=== PATIENT | female | born 1940 | race Caucasian/White ===

== ENCOUNTER 2025-06-05 17:08 | Inpatient (IN) ==
[2025-06-05 17:43] LABS: Hematocrit (blood only) 39.7 % (37.0-47.0); Hemoglobin 13.1 g/dL (12.0-16.0); Immature Granulocytes # (auto) 0.03 K/uL (0.01-0.20); Immature Granulocytes % (auto) 0.4 %; Mean Corpuscular Hemoglobin 31.6 pg (25.0-34.0); Mean Corpuscular Volume 95.7 fL (80.0-100.0); Platelet Count 141 K/uL (130-400); RDW Standard Deviation 48.1 fL (36.4-46.3); Red Blood Count 4.15 M/uL (4.20-5.40); White Blood Count 8.25 K/ul (4.8-10.8)
[2025-06-05] MEDS: TICAGRELOR 90 MG TAB PO ONE (17:50)
[2025-06-05] MEDS: niCARdipine 2,000 MCG/20 ML SYR ONE (17:50)
[2025-06-05] MEDS: NITROGLYCERIN/D5W 100MCG/ML 20ML SYR ONE (17:50)
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
[2025-06-05 18:04] LABS: Alanine Aminotransferase 44.0 U/L (7-52); Albumin Globulin Ratio 1.3 (0.9-2); Albumin Level 3.7 gm/dl (3.4-5.0); Alkaline Phosphatase 57.0 U/L (34-104); Anion Gap 9.0 (3-11); Bilirubin,Total 0.4 mg/dl (0.2-1.0); Blood Urea Nitrogen 45.0 mg/dl (6-23); Calcium 9.0 mg/dl (8.6-10.3); Carbon Dioxide 24.0 mmol/L (21-32); Chloride 102.0 mmol/L (98-107); Creatine Kinase 95.0 U/L (26-192); Creatinine Clr Calc Pharmacy 41.2 ml/min; Globulin 2.8 gm/dl (2.5-4.0); Glucose 122.0 mg/dl (70-99(Fasting)); Lipase 95.0 U/L (11-82); Magnesium 2.1 mg/dl (1.7-2.4); Potassium 4.8 mmol/L (3.5-5.1); Sodium 135.0 mmol/L (136-145); Total Protein 6.5 gm/dl (6.0-8.3)
[2025-06-05] MEDS: OPTIRAY 350 ONE (18:14)
[2025-06-05] MEDS: HEPARIN (PORCINE) 1000 UNIT/ML 10 ML (CATH LAB USE ONLY) ONE (18:15)
[2025-06-05] MEDS: MIDAZOLAM HCL 1 MG/ML 2ML VIAL ONE (18:16)
[2025-06-05 18:19] LABS: Thyroid Stimulating Hormone 1.865 uIu/ml (0.300-4.500)
--- NOTE | 2025-06-05 18:23 | Pre Anesthesia Assessment ---
Date of Service June 05, 2025 Pre Sedation Assessment Vital Signs Temp Pulse Pulse Resp BP BP Pulse Ox 06/05/25 17:13 92 06/05/25 17:13 06/05/25 16:56 92 06/05/25 16:56 36.8 C 82 20 124/91 92 06/05/25 16:56 06/05/25 16:56 36.8 C 82 20 124/91 92 O2 Del Method 06/05/25 17:13 Room Air 06/05/25 17:13 Room Air 06/05/25 16:56 Room Air 06/05/25 16:56 Room Air 06/05/25 16:56 Room Air 06/05/25 16:56 Room Air Cardiovascular RRR, no murmur, no edema Respiratory normal respiratory effort, lungs clear to auscultation Pre-Sedation Airway Assessment Smoking Status: Never smoker mallampati 2 ASA 4 Notes The planned sedation has been discussed with the patient. Informed Consent was obtained. I have identified the patient, determined the appropriateness of sedation and have assessed the patient immediately prior to the procedure. All medicine(s) and interventions are by my order.
[2025-06-05 18:24] LABS: INR 1.1 (0.9-1.1); Prothrombin Time 11.5 Seconds (9.0-12.0)
[2025-06-05] MEDS ORDERED: SODIUM CHLORIDE 0.9% 250 ML IV PRN (18:24)
--- NOTE | 2025-06-05 18:24 | Post Anesthesia Assessment ---
Date of Service June 05, 2025 Post Sedation Assessment Vital Signs Temp Pulse Pulse Resp BP BP Pulse Ox 06/05/25 17:13 92 06/05/25 17:13 06/05/25 16:56 92 06/05/25 16:56 36.8 C 82 20 124/91 92 06/05/25 16:56 06/05/25 16:56 36.8 C 82 20 124/91 92 O2 Del Method 06/05/25 17:13 Room Air 06/05/25 17:13 Room Air 06/05/25 16:56 Room Air 06/05/25 16:56 Room Air 06/05/25 16:56 Room Air 06/05/25 16:56 Room Air Recovery Score Activity: Moves 4 extremities Respiration: Deep Breath/Cough Circulation: +/-20% PreAnes Value Consciousness: Fully Awake Oxygen Saturation: > 92% On Room Air Discharge Sedation Level of Care: Fast Track Phase II Post Sedation Plan On clinical assessment, the patient appears to have tolerated the sedation without complications. Patient is recovering as anticipated. Patient will continue to be monitored by nursing and may be discharged when sedation discharge criteria are met per below protocol. Upon Completions of procedure up to 15 minutes continue every 5 minute vital signs and the P.A.R. score; then discharge to a Phase I or Fast Track to Phase II per the following guidelines: * Discharge Patient to appropriate Phase II area if PAR is 8 or greater or return to pre- procedure baseline. The post - procedure orders will be as directed. * If PAR score is less than 8 or not return to pre-procedure baseline then patient will follow Phase I monitoring till PAR is reached for Phase II. The Phase I may be done in procedure room or may call to secure a Phase I area. * If naloxone or flumazenil are used for reversal, hold in Phase I for continued monitoring from when last reversal dose was given for a minimum of 60 minutes or longer pending the nurse and/or physician discretion of patient condition before discharge to Phase II. Please call the Sedation Physician to re-evaluate and complete post-note for discharge to Phase II area. Do NOT discharge from procedure sedation or Phase 1 until post- sedation evaluation note is complete by procedure /sedation MD Sedation Discharge Instructions to be given to the patient at discharge to home. [facility] Procedure Codes (Charges) Indication for Procedure Indication for procedure: ACS
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
[2025-06-05 18:51] LABS: Partial Thromboplastin Time 103 Seconds (21-31)
--- NOTE | 2025-06-05 18:58 | Cardiac Catheterization ---
[facility] Data: Surveillance Technician Cardiac Status Clinical evaluation leading to the procedure CAD Presenation: STEMI Anginal Classification: CCS IV Cardiogenic Shock within 24 Hours: No Cardiac Arrest within 24 Hours: No Imaging Studies Past 6 Months: No Stress Studies Past 6 Months: No STEMI OR Non-STEMI Symptom Onset Date: 06/05/25 Coronary Anatomy Dominant: Right Left Main (% Stenosis): Normal (Diffuse up to 20-30%) LAD (% Stenosis): Proximal (60-70%, calcified), Mid (80%, 100% heavily calcified) and Distal (Not visualized) D1 (% Stenosis): Proximal (70-80%) D2 (% Stenosis): Normal (Small caliber) Circumflex (% Stenosis): Proximal (Proximal to mid long eccentric 70%) L PL1 (% Stenosis): Ostial (80%) RCA (% Stenosis): Normal R PDA (% Stenosis): Normal R PL1 (% Stenosis): Normal Ramus (% Stenosis): Ostial (80%) and Normal (Diffuse mild) Diagnostic Physicians Name: Alirio Garcia MD, PhD Closure Device Percutaneous Entry Location: Radial Closure Device: Radial Band Recommendations: Medical Therapy and/or Counseling Cardiac Cath Procedure Full Procedure Date June 05, 2025 Pre-Procedure Diagnosis Pre-Procedure Diagnosis: STEMI AUC Score AUC Score: 09 Post-Procedure Diagnosis Post-Procedure Diagnosis: Severe CAD Procedure(s) Performed Procedure(s) Performed: Coronary Angiography Bead Cutter Alirio Garcia MD, PhD Estimated Blood Loss Estimated Blood Loss: Less than 5 cc Medication(s) Medication(s): Fentanyl, Heparin, Lidocaine 1%, Nicardipine, Nitroglycerin and Versed Summary of Findings Brief description: Patient was brought to the cardiac catheterization suite where she was shaved and prepped in a sterile fashion. Sedated using IV Versed and fentanyl. Soft tissues of the right wrist were anesthetized using 3 mL of 1% Xylocaine. The right radial artery was accessed with a modified Seldinger technique and a 6 Montenegrin radial artery glide sheath was placed. Patient was provided anticoagulation with IV heparin and antispasmodics including nicardipine and nitroglycerin. All catheters were advanced and exchanged over a 0.035 J-tip wire. Right coronary angiography in orthogonal views with a 5 Montenegrin JR4 and JR 5 diagnostic catheter. Left coronary angiography with a 6 Montenegrin EBU 3.0 guide catheter. Because of the angiographic findings in the LAD decision was made to probe the lesion with the coronary guidewire. A BMW universal guidewire was advanced through the guide catheter and we attempted to cross the occlusion. This was not successful. After reshaping and multiple attempts we abandon use of the BMW universal guidewire. We next attempted to cross the lesion with a run-through coronary guide catheter. Again, we were unable to cross the 100% occlusion. The wire was able to go into the septal as well as the second diagonal branch but could not pass the lesion in the LAD. It was clear that this was a chronic total occlusion and decision was made to abandon further attempts at PCI. Additionally, patient had no chest pain on arrival to the Surveillance Technician. Final angiographic evaluation was performed once daily guidewire was removed. Guide catheter was then removed over the J-wire. We completed the right coronary angiography to better identify collateralization using the JR 5 diagnostic catheter. That catheter was then removed as well. Radial artery sheath was removed. Hemostasis was obtained using the TR band. Patient reported no chest pain and was hemodynamically stable. She was therefore transported to the ICU for further workup and management. This ended the case. Coronary angiography findings: RCA-medium to large caliber dominant vessel. Bifurcates distally into the PDA and posterolateral branches. No angiographically evident disease. Provides sparse cgshv-vw-[id number] collateralization. LMT-this is large caliber and trifurcates into the LAD, ramus, and circumflex. It has diffuse mild disease with the most significant stenosis being 20 to 30%. LAD-medium to large in caliber. Diffuse and heavy calcification proximal and mid vessel. Proximal LAD has 60 to 70% stenosis. LAD provides a medium caliber septal branch which has ostial 90% stenosis and a medium caliber first diagonal which branches distally and has a proximal 70 to 80% stenosis. The mid LAD has calcified 80% stenosis and after it bends it is then 100% occluded. This is a flat/flush occlusion and occurs at the level of a small second diagonal and a septal branch. MERRICK 0 flow distally. Ramus-small caliber and long vessel. Ostial disease of 80 to 90%. The rest of the vessel has diffuse mild disease. ZTx-tqvaq-bpjlnzs and nondominant. Travels in the AV groove where there is a long eccentric 70% stenosis. Distally provides a large branching posterolateral. This vessel has ostial 80% stenosis and then mild luminal irregularities. Summary: 1. Patient has severe multivessel coronary disease involving the circumflex and LAD. However, none of these lesions appear to be a acute culprit lesion and the attempts to pass the LAD stenosis as well as the angiographic appearance of the lesion are highly suggestive that this is a chronic total occlusion. 2. Recommend medical management for secondary prevention of coronary disease to include low-dose aspirin, high intensity statin therapy, beta-yue, and continue CHI inhibitor. Hemodynamics Rest Ao:: 110/67 mmHg Final Ao: 101/75 mmHg LV: Not performed Recommendations Recommendations: Medical Therapy and/or Counseling Radiation Exposure (mGy) 817 mGy, fluoroscopy time 15.4 minutes Contrast (mls) 290 cc Anesthesia 1 mg Versed, 25 mcg fentanyl IV. Start time 1738, end time 1816 Procedural Complication(s) None Disposition ICU I attest to the content of the Intraoperative Record and any orders documented therein. Any exceptions are noted below. [facility] Card Cath Procedure Codes Cardiac Catheterization Procedure 1: Cardiovascular Cath Procedures: 06980 Coronaries Moderate Sedation Procedure 1: Sedation/Anesthesia: 26174 Mod Sedation by the same physician;Init15 Min Child Age 5 & Up (Initial 15 minutes, start time 1738) Procedure 2: Sedation/Anesthesia: 81401 Mod Sedation by the same physician; Ea [id number] Minutes (Additional 23 minutes, end time 1816) PG Care Time/CCT Total # of Minutes Spent Total Time Spent with Patient: Total time spent is greater than 50% in coordination of care (as documented) at patient's floor/unit and/or counseling patient:
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
[2025-06-05] MEDS ORDERED: POLYETHYLENE (MIRALAX) 17 GM PACK PO PRN (19:36)
[2025-06-05] MEDS: ACETAMINOPHEN 325 MG TAB PO PRN (19:40)
[2025-06-05] MEDS ORDERED: ARTIFICIAL TEARS OP PRN (19:50)
[2025-06-05] MEDS ORDERED: ALBUTEROL 0.083% NEBU SOLN 3 ML VIAL INH PRN (19:52)
[2025-06-05] MEDS: NITROGLYCERIN SL 0.4 MG/TAB TAB SL PRN (20:00)
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
--- NOTE | 2025-06-05 20:16 | Communication Note ---
Date of Service: June 05, 2025 Patient with chest pressure/tightness that she reports is on left side of chest radiating to jaw, reports that this is the same that she experienced earlier today for which she sought medical attention. - Will provide SL NTG- - If her symptoms persist will place on NTG infusion - give her BB and CHI/ARB with goal to get SBP around 120- currently 140- 150/90s - oxygen to keep SPO2 >95% - heparin infusion pending labs - consider morphine if pain persists through NTG Discussed with interventional cardiology Dr. Fisher and recommends treating symptomatically and without urgent need for revascularization based on cath findings. Steve CAVAZOS ([facility]
[2025-06-05] MEDS: HEPARIN 25000 UNIT/500 ML D5W 25,000 UNITS/500 ML BAG IV SCH (20:22)
[2025-06-05] MEDS: Heparin IV Adult Wt-Based Low-Dose *NO* INITIAL Bolus Protocol IV STA (20:27)
[2025-06-05] MEDS: ONDANSETRON INJ 2 MG/ML 2 ML VIAL IV PRN (20:40)
[2025-06-05 20:44] LABS: INR 1.0 (0.9-1.1); Partial Thromboplastin Time 35 Seconds (21-31); Prothrombin Time 11.0 Seconds (9.0-12.0)
--- NOTE | 2025-06-05 20:47 | XRay Report ---
Exam(s): XR CXR 1 VIEW EXAM: XR Chest, 1 View CLINICAL HISTORY: Reason for exam: Chest pain, nonspecific. TECHNIQUE: Frontal view of the chest. COMPARISON: Chest radiograph on 12/16/2011 FINDINGS: Hardware: None. Lungs/pleura: Interstitial opacities throughout the lungs. No pleural effusion or pneumothorax. Heart/mediastinum: Normal. No cardiomegaly. Soft tissues: Unremarkable. Bones: No acute fracture. Screw through the left clavicle. Upper abdomen: Normal. IMPRESSION: Interstitial opacities throughout the lungs may represent pulmonary vasculature congestion or infectious/inflammatory process. Electronically signed by: Helen Parada M.D. 06/05/25 20:45 PM
[2025-06-05] MEDS: UREA (UREA-NA) 15 GM PACK PO SCH (21:14)
[2025-06-05] MEDS ORDERED: STAT IV Infusion **Titration per Protocol STA (21:22)
[2025-06-05] MEDS: NITROGLYCERIN/D5W 100MCG/ML 250 ML IV SCH (21:26)
[2025-06-05] MEDS: NITROGLYCERIN/D5W 100 MCG/ML BTL ONE (22:32)
[2025-06-05] MEDS: GABAPENTIN 100 MG CAP PO SCH (22:34)
[2025-06-05] MEDS: ROSUVASTATIN CALCIUM 20 MG TAB PO SCH (22:34)
[2025-06-05] MEDS: MIRTAZAPINE TAB 15 MG TAB PO SCH (22:34)
[2025-06-05] MEDS: MONTELUKAST SODIUM 10 MG TABLET PO SCH (22:34)
[2025-06-05] MEDS: MoRPHine SULFATE 2 MG/ML CARP IV STA (22:54)
[2025-06-05] MEDS: PANTOprazole 40 MG/10 ML SYR IV ONE (22:58)
[2025-06-05 23:38] VITALS: TEMP 98.2
[2025-06-06 03:11] LABS: Hematocrit (blood only) 35.1 % (37.0-47.0); Hemoglobin 11.8 g/dL (12.0-16.0); Mean Corpuscular Hemoglobin 32.0 pg (25.0-34.0); Mean Corpuscular Volume 95.1 fL (80.0-100.0); Platelet Count 147 K/uL (130-400); RDW Standard Deviation 48.4 fL (36.4-46.3); Red Blood Count 3.69 M/uL (4.20-5.40); White Blood Count 8.33 K/ul (4.8-10.8)
[2025-06-06] MEDS: MoRPHine SULFATE 2 MG/ML CARP IV STA ×2 (03:51→08:58)
[2025-06-06 03:58] LABS: ANTI-Xa, UFH(UnfractionatedHep 0.67 IU/ml (0.3-0.7)
[2025-06-06 04:11] LABS: Albumin Level 3.7 gm/dl (3.4-5.0); Anion Gap 10.0 (3-11); Bilirubin,Total 0.5 mg/dl (0.2-1.0); Calcium 8.5 mg/dl (8.6-10.3); Carbon Dioxide 20.0 mmol/L (21-32); Chloride 103.0 mmol/L (98-107); Magnesium 2.2 mg/dl (1.7-2.4); Potassium 4.6 mmol/L (3.5-5.1); Sodium 133.0 mmol/L (136-145)
[2025-06-06 04:18] LABS: Alanine Aminotransferase 50.0 U/L (7-52); Albumin Globulin Ratio 1.7 (0.9-2); Alkaline Phosphatase 49.0 U/L (34-104); Blood Urea Nitrogen 38.0 mg/dl (6-23); Cholesterol 136.0 mg/dl (0-200); Creatinine Clr Calc Pharmacy 48.8 ml/min; Globulin 2.2 gm/dl (2.5-4.0); Glucose 129.0 mg/dl (70-99(Fasting)); HDL Cholesterol 55.0 mg/dl; Total Protein 5.9 gm/dl (6.0-8.3); Triglycerides 56.0 mg/dl (0-150)
[2025-06-06 08:03] LABS: Hemoglobin A1C 5.9 % (4.5-5.6)
[2025-06-06] MEDS: MoRPHine SULFATE 2 MG/ML CARP ONE (08:30)
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
--- NOTE | 2025-06-06 09:25 | Critical Care Progress Note ---
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 To the ICU for continued symptomatology and hemodynamic monitoring. Neuro - NO acute needs CAM ICU: NEGATIVE Cardiac - chest pain, CAD, ACS Hx: HTN, HLD - Multivessel disease. Patient with persistent chest pain despite nitroglycerin and morphine. Dr. Ochoa discussing with [facility] regarding potential transfer for additional intervention. EF about 20% per Dr. Ochoa. Continuing heparin infusion. Continue to trend troponins. Continue aspirin, CHI inhibitor, beta-yue and statin. Respiratory - No acute need- hx of Asthma - Continue ICS/LABA inhaler. Chest x-ray with mild interstitial opacities possibly from vascular congestion. Low threshold for CT chest with contrast. GI - No acute need - N.p.o. for the time being for RENAL/LYTES - No acute needs- chronic hyponatremia - follow daily labs - No acute needs ENDO - No acute needs - ICU hyper/hypoglycemic protocol- HEME - No acute need - Heparin as above ID - no concern at this time for infective etiology LINES/IV ACCESS - PIV Continue use of these lines DVT PROPHYLAXIS - DISPO-patient with ongoing ischemic symptoms. Monitor in ICU and possible transfer to tertiary center depending on cardiology input. I have personally spent 42 minutes of critical care time in the direct management of this patient. This is a life/limb threatening event. This includes time spent evaluating patient, direct bedside care, chart review, placing orders, interpretation of diagnostic studies, discussion with consultants, patient, and family members, as well as other required patient management activities. This time is exclusive of all separately billable procedures, and teaching time and separate from and in addition to any other critical care service time. Thank you for allowing us to participate in the care of this patient. Please refer to my attending physician's documentation for any further recommendations. Admission and Anticipated Discharge Date Admission Date: June 05, 2025 Subjective Patient complaining of 8 out of 10 chest pain today that appears to be squeezing in nature and radiating to left arm. Cardiology at bedside (Dr. Ochoa). Patient denies any significant dyspnea and nausea. Hemodynamically she is stable. She underwent a left heart catheterization last night and was found to have severe chronic disease. Review of Systems Review of Systems: All systems reviewed & are unremarkable except as noted in HPI & below Physical Exam Physical Exam: PHYSICAL EXAM: General: awake, alert, no apparent distress Head: Normocephalic, atraumatic ENT: PERRLA, EOMI, no pharyngeal exudate, mucous membranes moist Neuro: AAO x 3, speech clear and appropriate, strength intact bilaterally 5/5, sensation intact and equal all extremities bilaterally upper and lowers, no pron ator drift Chest: equal rise and fall of the chest, no accessory muscle use, no heaves or thrills, Clear to auscultation, on room air, Cardiac: Regular rate and rhythm, telemetry reviewed- NSR no ectopy, skin warm dry, cap refill <3 seconds, peripheral pulses +2 no JVD, grade I systolic murmur Rsternal border GI: NABS x 4 quadrants, soft, nontender to palpation, no rebound, guarding or tenderness : Spontaneously voiding, no pain, no CVA tenderness, Skin: no rash or erythema Results & Data Results & Data Vital Signs (Past 12 Hours) Vital Signs Temp Pulse Resp BP Pulse Ox O2 Del Method O2 Flow Rate 06/06/25 08:42 66 15 98 06/06/25 08:40 116/61 06/06/25 08:39 66 13 97 06/06/25 08:30 69 17 99 06/06/25 08:30 110/61 06/06/25 08:21 64 15 99 06/06/25 08:20 118/65 06/06/25 08:18 65 16 99 06/06/25 08:12 67 15 99 06/06/25 08:10 125/68 06/06/25 08:09 69 17 99 06/06/25 08:00 125/65 06/06/25 08:00 72 17 100 06/06/25 07:51 65 17 100 06/06/25 07:45 67 14 100 06/06/25 07:45 127/58 L 06/06/25 07:42 65 13 100 06/06/25 07:38 122/54 L 06/06/25 07:36 81 16 100 06/06/25 07:30 68 16 100 06/06/25 07:30 140/57 L 06/06/25 06:30 77 16 06/06/25 06:30 139/63 06/06/25 06:21 73 15 06/06/25 06:12 71 16 100 06/06/25 06:00 73 23 100 06/06/25 06:00 126/54 L 06/06/25 05:51 67 21 100 06/06/25 05:42 99 06/06/25 05:30 83 15 97 Nasal Cannula 2 06/06/25 05:30 126/68 06/06/25 05:30 126/68 06/06/25 05:21 68 16 98 06/06/25 05:12 65 16 98 06/06/25 05:00 115/63 06/06/25 05:00 115/63 06/06/25 05:00 115/63 06/06/25 05:00 65 15 98 06/06/25 04:51 66 15 98 06/06/25 04:42 66 16 98 06/06/25 04:30 65 14 99 06/06/25 04:30 120/60 06/06/25 04:30 120/60 06/06/25 04:21 70 16 99 06/06/25 04:12 69 17 99 06/06/25 04:00 36.8 C 65 18 98 Nasal Cannula 2 06/06/25 04:00 117/59 L 06/06/25 03:51 73 21 99 06/06/25 03:42 66 17 100 06/06/25 03:30 64 15 100 06/06/25 03:30 120/72 06/06/25 03:30 120/72 06/06/25 03:21 71 15 100 06/06/25 03:12 85 12 98 06/06/25 03:09 120/79 06/06/25 03:09 84 19 100 06/06/25 03:00 73 15 100 06/06/25 02:51 65 31 H 99 06/06/25 02:42 63 23 98 06/06/25 02:30 64 33 H 98 06/06/25 02:30 123/63 06/06/25 02:30 123/63 06/06/25 02:21 63 23 98 06/06/25 02:12 63 16 99 06/06/25 02:00 104/62 06/06/25 02:00 104/62 06/06/25 02:00 63 22 99 06/06/25 01:51 64 16 99 06/06/25 01:42 64 16 99 06/06/25 01:30 111/64 06/06/25 01:30 63 15 99 06/06/25 01:21 64 15 99 06/06/25 01:12 69 15 100 06/06/25 01:00 63 17 100 06/06/25 01:00 105/62 06/06/25 01:00 105/62 06/06/25 00:51 64 15 98 06/06/25 00:42 59 L 21 97 06/06/25 00:30 100/56 L 06/06/25 00:30 100/56 L 06/06/25 00:30 63 19 98 06/06/25 00:21 63 24 98 06/06/25 00:12 62 27 H 97 06/06/25 00:00 61 18 97 06/06/25 00:00 111/65 06/06/25 00:00 65 06/05/25 23:51 62 24 97 06/05/25 23:42 62 21 97 06/05/25 23:30 110/67 06/05/25 23:30 110/67 06/05/25 23:30 36.8 C 110/67 06/05/25 23:30 64 19 97 06/05/25 23:21 66 19 97 06/05/25 23:15 63 13 97 06/05/25 23:15 102/60 06/05/25 23:15 102/60 06/05/25 23:12 72 19 98 06/05/25 23:00 122/60 06/05/25 23:00 122/60 06/05/25 23:00 71 18 97 06/05/25 22:51 78 16 99 06/05/25 22:45 67 28 H 97 06/05/25 22:45 137/73 06/05/25 22:45 137/73 06/05/25 22:42 66 21 97 06/05/25 22:30 72 20 97 06/05/25 22:30 136/73 06/05/25 22:30 136/73 06/05/25 22:30 136/73 06/05/25 22:30 136/73 06/05/25 22:21 66 16 97 06/05/25 22:15 70 15 98 06/05/25 22:15 136/75 06/05/25 22:12 69 16 98 06/05/25 22:00 68 16 99 06/05/25 22:00 143/76 H 06/05/25 21:51 67 16 99 06/05/25 21:45 141/79 H 06/05/25 21:45 141/79 H 06/05/25 21:45 73 15 99 06/05/25 21:42 76 16 99 06/05/25 21:30 64 27 H 100 06/05/25 21:30 142/71 H 06/05/25 21:30 142/71 H Coding Level of Care Code 29829 CRITICAL CARE 1ST 30-74M Diagnoses CAD (coronary artery disease) I25.10 Associated angina: with unspecified form of angina Coronary Disease-Associated Artery/Lesion type: n[place] artery Primary hypertension I10 Hypertension type: primary hypertension Hyperlipidemia, unspecified hyperlipidemia type E78.5 Hyperlipidemia type: unspecified Moderate persistent asthma without complication J45.40 Asthma complication type: uncomplicated Asthma persistence: persistent Asthma severity: moderate Paroxysmal A-fib I48.0 Acute chest pain R07.9 (1) CAD (coronary artery disease) Associated angina: with unspecified form of angina Coronary Disease- Associated Artery/Lesion type: nikols[place] artery (2) Hypertension Hypertension type: primary hypertension Qualified Code(s): I10 - Essential (primary) hypertension (3) Hyperlipidemia Hyperlipidemia type: unspecified Qualified Code(s): E78.5 - Hyperlipidemia, unspecified (4) Asthma Asthma complication type: uncomplicated Asthma persistence: persistent Asthma severity: moderate Qualified Code(s): J45.40 - Moderate persistent asthma, uncomplicated
--- NOTE | 2025-06-06 10:02 | Hospitalist Progress Note ---
Date of Service June 06, 2025 Assessment & Plan (1) STEMI (ST elevation myocardial infarction): (2) CAD (coronary artery disease): (3) Hyperlipidemia: (4) Hypertension: Plan Ms. Yolie New is an 85 year old female with past medical history of hypertension, hyperlipidemia,asthma, breast cancer status post chemoradiation in 2010, endometrial cancer in 2009, paroxysmal AFib, chronic lymphedema of the left leg, SIADH admitted for evaluation of STEMI. LHC Revealed: RCA-medium to large caliber dominant vessel. Bifurcates distally into the PDA and posterolateral branches. No angiographically evident disease. Provides sparse xheft-zq-xuxq collateralization. LMT-this is large caliber and trifurcates into the LAD, ramus, and circumflex. It has diffuse mild disease with the most significant stenosis being 20 to 30%. LAD-medium to large in caliber. Diffuse and heavy calcification proximal and mid vessel. Proximal LAD has 60 to 70% stenosis. LAD provides a medium caliber septal branch which has ostial 90% stenosis and a medium caliber first diagonal which branches distally and has a proximal 70 to 80% stenosis. The mid LAD has calcified 80% stenosis and after it bends it is then 100% occluded. This is a flat/flush occlusion and occurs at the level of a small second diagonal and a septal branch. MERRICK 0 flow distally. Ramus-small caliber and long vessel. Ostial disease of 80 to 90%. The rest of the vessel has diffuse mild disease. OCx-kjues-mkunbzo and nondominant. Travels in the AV groove where there is a long eccentric 70% stenosis. Distally provides a large branching posterolateral. This vessel has ostial 80% stenosis and then mild luminal irregularities. 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 consult for decision of further med mgmt on statin 40mg daily, continue a1c and lipid panel in am #mild transaminitis will repeat in am as well as lipase, no active gi symptoms #SIADH will continue home FR at 1.8L continue urea 3xweek #PAF on coreg for rate, eliquis 2.5mg bid for doac #HTN continue Coreg 3.125 mg twice daily and lisinopril 10 mg twice daily DVT heparin ggt admit to ICU for hemodynamic monitoring s/p [facility] PT/OT Admission and Anticipated Discharge Date Admission Date: June 05, 2025 Physical Exam Physical Exam: GENERAL APPEARANCE: AxOx4, generally well-appearing female, no acute distress. HEENT: NC, AT. MMM. EOMI, clear conjunctiva, oropharynx clear. NECK: Supple without lymphadenopathy. No stiffness or restricted ROM. HEART: Normal rate and regular rhythm, normal S1/S1, no m/r/g LUNGS: CTAB, moving air well. No crackles or wheezes are heard. ABDOMEN: Soft, nontender, nondistended with good bowel sounds heard. BACK: No CVAT, no obvious deformity. EXTREMITIES: Without cyanosis, clubbing. LLE with CHI bandaging for lymphedema; TR band in right wrist NEUROLOGICAL: Grossly nonfocal. Alert and oriented, moving all 4 extremities. CN not formally tested but appear grossly intact. Skin: Warm and dry without any rash. Results & Data Results & Data Vital Signs (Past 12 Hours) Vital Signs Temp Pulse Resp BP Pulse Ox O2 Del Method O2 Flow Rate 06/06/25 08:42 66 15 98 06/06/25 08:40 116/61 06/06/25 08:39 66 13 97 06/06/25 08:30 69 17 99 06/06/25 08:30 110/61 06/06/25 08:21 64 15 99 06/06/25 08:20 118/65 06/06/25 08:18 65 16 99 06/06/25 08:12 67 15 99 06/06/25 08:10 125/68 06/06/25 08:09 69 17 99 06/06/25 08:00 125/65 06/06/25 08:00 72 17 100 06/06/25 07:51 65 17 100 06/06/25 07:45 67 14 100 06/06/25 07:45 127/58 L 06/06/25 07:42 65 13 100 06/06/25 07:38 122/54 L 06/06/25 07:36 81 16 100 06/06/25 07:30 68 16 100 06/06/25 07:30 140/57 L 06/06/25 06:30 77 16 06/06/25 06:30 139/63 06/06/25 06:21 73 15 06/06/25 06:12 71 16 100 06/06/25 06:00 73 23 100 06/06/25 06:00 126/54 L 06/06/25 05:51 67 21 100 06/06/25 05:42 99 06/06/25 05:30 83 15 97 Nasal Cannula 2 06/06/25 05:30 126/68 06/06/25 05:30 126/68 06/06/25 05:21 68 16 98 06/06/25 05:12 65 16 98 06/06/25 05:00 115/63 06/06/25 05:00 115/63 06/06/25 05:00 115/63 06/06/25 05:00 65 15 98 06/06/25 04:51 66 15 98 06/06/25 04:42 66 16 98 06/06/25 04:30 65 14 99 06/06/25 04:30 120/60 06/06/25 04:30 120/60 06/06/25 04:21 70 16 99 06/06/25 04:12 69 17 99 06/06/25 04:00 36.8 C 65 18 98 Nasal Cannula 2 06/06/25 04:00 117/59 L 06/06/25 03:51 73 21 99 06/06/25 03:42 66 17 100 06/06/25 03:30 64 15 100 06/06/25 03:30 120/72 06/06/25 03:30 120/72 06/06/25 03:21 71 15 100 06/06/25 03:12 85 12 98 06/06/25 03:09 120/79 06/06/25 03:09 84 19 100 06/06/25 03:00 73 15 100 06/06/25 02:51 65 31 H 99 06/06/25 02:42 63 23 98 06/06/25 02:30 64 33 H 98 06/06/25 02:30 123/63 06/06/25 02:30 123/63 06/06/25 02:21 63 23 98 06/06/25 02:12 63 16 99 06/06/25 02:00 104/62 06/06/25 02:00 104/62 06/06/25 02:00 63 22 99 06/06/25 01:51 64 16 99 06/06/25 01:42 64 16 99 06/06/25 01:30 111/64 06/06/25 01:30 63 15 99 06/06/25 01:21 64 15 99 06/06/25 01:12 69 15 100 06/06/25 01:00 63 17 100 06/06/25 01:00 105/62 06/06/25 01:00 105/62 06/06/25 00:51 64 15 98 06/06/25 00:42 59 L 21 97 06/06/25 00:30 100/56 L 06/06/25 00:30 100/56 L 06/06/25 00:30 63 19 98 06/06/25 00:21 63 24 98 06/06/25 00:12 62 27 H 97 06/06/25 00:00 61 18 97 06/06/25 00:00 111/65 06/06/25 00:00 65 06/05/25 23:51 62 24 97 06/05/25 23:42 62 21 97 06/05/25 23:30 110/67 06/05/25 23:30 110/67 06/05/25 23:30 36.8 C 110/67 06/05/25 23:30 64 19 97 06/05/25 23:21 66 19 97 06/05/25 23:15 63 13 97 06/05/25 23:15 102/60 06/05/25 23:15 102/60 06/05/25 23:12 72 19 98 06/05/25 23:00 122/60 06/05/25 23:00 122/60 06/05/25 23:00 71 18 97 06/05/25 22:51 78 16 99 06/05/25 22:45 67 28 H 97 06/05/25 22:45 137/73 06/05/25 22:45 137/73 06/05/25 22:42 66 21 97 06/05/25 22:30 72 20 97 06/05/25 22:30 136/73 06/05/25 22:30 136/73 06/05/25 22:30 136/73 06/05/25 22:30 136/73 06/05/25 22:21 66 16 97 06/05/25 22:15 70 15 98 06/05/25 22:15 136/75 06/05/25 22:12 69 16 98 (2) CAD (coronary artery disease) Coronary Disease-Associated Artery/Lesion type: [place] artery Associated angina: with unspecified form of angina (3) Hyperlipidemia Hyperlipidemia type: unspecified Qualified Code(s): E78.5 - Hyperlipidemia, unspecified (4) Hypertension Hypertension type: primary hypertension Qualified Code(s): I10 - Essential (primary) hypertension
[2025-06-06 10:11] VITALS: RESP 16; O2SAT 94
--- NOTE | 2025-06-06 10:14 | XCELERA ---
[id number]\[id number]
--- NOTE | 2025-06-06 10:55 | Pre Anesthesia Assessment ---
Date of Service June 06, 2025 Pre Sedation Assessment Vital Signs Temp Pulse Pulse Resp BP BP BP 06/06/25 10:10 74 16 136/65 06/06/25 08:42 66 15 06/06/25 08:40 116/61 06/06/25 08:39 66 13 06/06/25 08:30 69 17 06/06/25 08:30 110/61 06/06/25 08:21 64 15 06/06/25 08:20 118/65 06/06/25 08:18 65 16 06/06/25 08:12 67 15 06/06/25 08:10 125/68 06/06/25 08:09 69 17 06/06/25 08:00 125/65 06/06/25 08:00 72 17 06/06/25 07:51 65 17 06/06/25 07:45 67 14 06/06/25 07:45 127/58 L 06/06/25 07:42 65 13 06/06/25 07:38 122/54 L 06/06/25 07:36 81 16 06/06/25 07:30 68 16 06/06/25 07:30 140/57 L 06/06/25 06:30 77 16 06/06/25 06:30 139/63 06/06/25 06:21 73 15 06/06/25 06:12 71 16 06/06/25 06:00 73 23 06/06/25 06:00 126/54 L 06/06/25 05:51 67 21 06/06/25 05:42 06/06/25 05:30 83 15 06/06/25 05:30 126/68 06/06/25 05:30 126/68 06/06/25 05:21 68 16 06/06/25 05:12 65 16 06/06/25 05:00 115/63 06/06/25 05:00 115/63 06/06/25 05:00 115/63 06/06/25 05:00 65 15 06/06/25 04:51 66 15 06/06/25 04:42 66 16 06/06/25 04:30 65 14 06/06/25 04:30 120/60 06/06/25 04:30 120/60 06/06/25 04:21 70 16 06/06/25 04:12 69 17 06/06/25 04:00 36.8 C 65 18 06/06/25 04:00 117/59 L 06/06/25 03:51 73 21 06/06/25 03:42 66 17 06/06/25 03:30 64 15 06/06/25 03:30 120/72 06/06/25 03:30 120/72 06/06/25 03:21 71 15 06/06/25 03:12 85 12 06/06/25 03:09 120/79 06/06/25 03:09 84 19 06/06/25 03:00 73 15 06/06/25 02:51 65 31 H 06/06/25 02:42 63 23 06/06/25 02:30 64 33 H 06/06/25 02:30 123/63 06/06/25 02:30 123/63 06/06/25 02:21 63 23 06/06/25 02:12 63 16 06/06/25 02:00 104/62 06/06/25 02:00 104/62 06/06/25 02:00 63 22 06/06/25 01:51 64 16 06/06/25 01:42 64 16 06/06/25 01:30 111/64 06/06/25 01:30 63 15 06/06/25 01:21 64 15 06/06/25 01:12 69 15 06/06/25 01:00 63 17 06/06/25 01:00 105/62 06/06/25 01:00 105/62 06/06/25 00:51 64 15 06/06/25 00:42 59 L 21 06/06/25 00:30 100/56 L 06/06/25 00:30 100/56 L 06/06/25 00:30 63 19 06/06/25 00:21 63 24 06/06/25 00:12 62 27 H 06/06/25 00:00 61 18 06/06/25 00:00 111/65 06/06/25 00:00 65 06/05/25 23:51 62 24 06/05/25 23:42 62 21 06/05/25 23:30 110/67 06/05/25 23:30 110/67 06/05/25 23:30 36.8 C 110/67 06/05/25 23:30 64 19 06/05/25 23:21 66 19 06/05/25 23:15 63 13 06/05/25 23:15 102/60 06/05/25 23:15 102/60 06/05/25 23:12 72 19 06/05/25 23:00 122/60 06/05/25 23:00 122/60 06/05/25 23:00 71 18 06/05/25 22:51 78 16 06/05/25 22:45 67 28 H 06/05/25 22:45 137/73 06/05/25 22:45 137/73 06/05/25 22:42 66 21 06/05/25 22:30 72 20 06/05/25 22:30 136/73 06/05/25 22:30 136/73 06/05/25 22:30 136/73 06/05/25 22:30 136/73 06/05/25 22:21 66 16 06/05/25 22:15 70 15 06/05/25 22:15 136/75 06/05/25 22:12 69 16 06/05/25 22:00 68 16 06/05/25 22:00 143/76 H 06/05/25 21:51 67 16 06/05/25 21:45 141/79 H 06/05/25 21:45 141/79 H 06/05/25 21:45 73 15 06/05/25 21:42 76 16 06/05/25 21:30 64 27 H 06/05/25 21:30 142/71 H 06/05/25 21:30 142/71 H 06/05/25 21:21 72 17 06/05/25 21:12 63 14 06/05/25 21:00 120/76 06/05/25 21:00 120/76 06/05/25 21:00 71 15 06/05/25 20:51 66 12 06/05/25 20:46 107/75 06/05/25 20:46 107/75 06/05/25 20:45 67 18 06/05/25 20:42 73 12 06/05/25 20:41 133/91 06/05/25 20:41 133/91 06/05/25 20:39 85 29 H 06/05/25 20:39 147/91 H 06/05/25 20:30 130/92 06/05/25 20:30 130/92 06/05/25 20:30 130/92 06/05/25 20:30 79 17 06/05/25 20:21 83 12 06/05/25 20:00 06/05/25 20:00 36.5 C 88 20 153/96 H 06/05/25 20:00 147/90 H 06/05/25 20:00 147/90 H 06/05/25 20:00 147/90 H 06/05/25 20:00 147/90 H 06/05/25 20:00 36.5 C 147/90 H 06/05/25 20:00 83 26 H 06/05/25 19:51 82 13 06/05/25 19:45 152/87 H 06/05/25 19:45 152/87 H 06/05/25 19:45 152/87 H 06/05/25 19:45 152/87 H 06/05/25 19:45 83 26 H 06/05/25 19:42 82 15 06/05/25 19:30 85 26 H 06/05/25 19:30 142/100 H 06/05/25 19:30 142/100 H 06/05/25 19:21 83 19 06/05/25 19:15 153/96 H 06/05/25 19:15 153/96 H 06/05/25 19:15 153/96 H 06/05/25 19:15 153/96 H 06/05/25 19:15 153/96 H 06/05/25 19:15 85 23 06/05/25 19:12 83 16 06/05/25 19:00 85 21 06/05/25 19:00 141/95 H 06/05/25 19:00 141/95 H 06/05/25 19:00 141/95 H 06/05/25 19:00 141/95 H 06/05/25 18:51 81 20 06/05/25 18:46 137/88 06/05/25 18:45 81 18 06/05/25 18:42 85 27 H 06/05/25 18:39 82 25 H 06/05/25 18:39 83 06/05/25 18:38 127/85 06/05/25 17:13 06/05/25 17:13 06/05/25 16:56 12/08/25 16:56 36.8 C 82 20 124/91 06/05/25 16:56 06/05/25 16:56 36.8 C 82 20 124/91 Pulse Ox O2 Del Method O2 Flow Rate 06/06/25 10:10 94 Room Air 06/06/25 08:42 98 06/06/25 08:40 06/06/25 08:39 97 06/06/25 08:30 99 06/06/25 08:30 06/06/25 08:21 99 06/06/25 08:20 06/06/25 08:18 99 06/06/25 08:12 99 06/06/25 08:10 06/06/25 08:09 99 06/06/25 08:00 06/06/25 08:00 100 06/06/25 07:51 100 06/06/25 07:45 100 06/06/25 07:45 06/06/25 07:42 100 06/06/25 07:38 06/06/25 07:36 100 06/06/25 07:30 100 06/06/25 07:30 06/06/25 06:30 06/06/25 06:30 06/06/25 06:21 06/06/25 06:12 100 06/06/25 06:00 100 06/06/25 06:00 06/06/25 05:51 100 06/06/25 05:42 99 06/06/25 05:30 97 Nasal Cannula 2 06/06/25 05:30 06/06/25 05:30 06/06/25 05:21 98 06/06/25 05:12 98 06/06/25 05:00 06/06/25 05:00 06/06/25 05:00 06/06/25 05:00 98 06/06/25 04:51 98 06/06/25 04:42 98 06/06/25 04:30 99 06/06/25 04:30 06/06/25 04:30 06/06/25 04:21 99 06/06/25 04:12 99 06/06/25 04:00 98 Nasal Cannula 2 06/06/25 04:00 06/06/25 03:51 99 06/06/25 03:42 100 06/06/25 03:30 100 06/06/25 03:30 06/06/25 03:30 06/06/25 03:21 100 06/06/25 03:12 98 06/06/25 03:09 06/06/25 03:09 100 06/06/25 03:00 100 06/06/25 02:51 99 06/06/25 02:42 98 06/06/25 02:30 98 06/06/25 02:30 06/06/25 02:30 06/06/25 02:21 98 06/06/25 02:12 99 06/06/25 02:00 06/06/25 02:00 06/06/25 02:00 99 06/06/25 01:51 99 06/06/25 01:42 99 06/06/25 01:30 06/06/25 01:30 99 06/06/25 01:21 99 06/06/25 01:12 100 06/06/25 01:00 100 06/06/25 01:00 06/06/25 01:00 06/06/25 00:51 98 06/06/25 00:42 97 06/06/25 00:30 06/06/25 00:30 06/06/25 00:30 98 06/06/25 00:21 98 06/06/25 00:12 97 06/06/25 00:00 97 06/06/25 00:00 06/06/25 00:00 06/05/25 23:51 97 06/05/25 23:42 97 06/05/25 23:30 06/05/25 23:30 06/05/25 23:30 06/05/25 23:30 97 06/05/25 23:21 97 06/05/25 23:15 97 06/05/25 23:15 06/05/25 23:15 06/05/25 23:12 98 06/05/25 23:00 06/05/25 23:00 06/05/25 23:00 97 06/05/25 22:51 99 06/05/25 22:45 97 06/05/25 22:45 06/05/25 22:45 06/05/25 22:42 97 06/05/25 22:30 97 06/05/25 22:30 06/05/25 22:30 06/05/25 22:30 06/05/25 22:30 06/05/25 22:21 97 06/05/25 22:15 98 06/05/25 22:15 06/05/25 22:12 98 06/05/25 22:00 99 06/05/25 22:00 06/05/25 21:51 99 06/05/25 21:45 06/05/25 21:45 06/05/25 21:45 99 06/05/25 21:42 99 06/05/25 21:30 100 06/05/25 21:30 06/05/25 21:30 06/05/25 21:21 100 06/05/25 21:12 100 06/05/25 21:00 06/05/25 21:00 06/05/25 21:00 100 06/05/25 20:51 98 06/05/25 20:46 06/05/25 20:46 06/05/25 20:45 97 06/05/25 20:42 97 Nasal Cannula 2 06/05/25 20:41 06/05/25 20:41 06/05/25 20:39 100 06/05/25 20:39 06/05/25 20:30 06/05/25 20:30 06/05/25 20:30 06/05/25 20:30 100 06/05/25 20:21 100 06/05/25 20:00 Nasal Cannula 2 06/05/25 20:00 96 Room Air 06/05/25 20:00 06/05/25 20:00 06/05/25 20:00 06/05/25 20:00 06/05/25 20:00 06/05/25 20:00 100 06/05/25 19:51 100 06/05/25 19:45 06/05/25 19:45 06/05/25 19:45 06/05/25 19:45 06/05/25 19:45 98 06/05/25 19:42 99 06/05/25 19:30 100 06/05/25 19:30 06/05/25 19:30 06/05/25 19:21 99 06/05/25 19:15 06/05/25 19:15 06/05/25 19:15 06/05/25 19:15 06/05/25 19:15 06/05/25 19:15 99 06/05/25 19:12 98 06/05/25 19:00 100 06/05/25 19:00 06/05/25 19:00 06/05/25 19:00 06/05/25 19:00 06/05/25 18:51 99 06/05/25 18:46 06/05/25 18:45 100 06/05/25 18:42 100 06/05/25 18:39 95 06/05/25 18:39 06/05/25 18:38 06/05/25 17:13 92 Room Air 06/05/25 17:13 Room Air 06/05/25 16:56 92 Room Air 06/05/25 16:56 92 Room Air 06/05/25 16:56 Room Air 06/05/25 16:56 92 Room Air Cardiovascular Additional Comments: RRR, S4 Respiratory normal respiratory effort, lungs clear to auscultation Pre-Sedation Airway Assessment Smoking Status: Never smoker Hx Sleep Apnea: No Short, Thick Neck: No Thyromental Distance: > or= 3.5 Finger Breadths Oral Cavity: + WNL Mallampati Class: III ASA: ASA4 NPO Status Date of Last Intake of Fluids: 06/05/25 Time of Last Intake of Fluids: 22:00 Date of Last Intake of Solid Food: 06/05/25 Time of Last Intake of Solid Foods: 22:00 Notes The planned sedation has been discussed with the patient. Informed Consent was obtained. I have identified the patient, determined the appropriateness of sedation and have assessed the patient immediately prior to the procedure. All medicine(s) and interventions are by my order.
--- NOTE | 2025-06-06 10:57 | Discharge Summary ---
Date of Service June 06, 2025 Admission HPI Per Admitting Provider Ms. Yolie New is an 85 year old female with past medical history of hypertension, hyperlipidemia,asthma, breast cancer status post chemoradiation in 2010, endometrial cancer in 2009, paroxysmal AFib, chronic lymphedema of the left leg, SIADH presented to [facility] ED due to chest pain then subsequently transfered to [facility] ED for LHC. Patient evaluated in ICU s/p LHC with daughter María on the phone. Patient states she has been feeling well overall. She lives in [place] in assisted living part of the year, but was moving back to her house yesterday as her son was coming to stay for the holidays. She states she had a stressful week as the family made the decision to transition her with parkinsons to hospice; otherwise, she feels she was fine until this afternoon. She was getting out of the car and felt short of breath initially, which was then followed by severe pain. She reports difficulty describing the pain, just repeating that "it was bad, so bad." She denies active chest pain at this time, and understands that there were no stents placed but understands she does have blockages that are "tough to get to" She states she would like to discuss escalation of care depending on situation, but if her heart were to stop, she would want DNR/DNI She denies right wrist discomfort, she denies nausea, vomiting or other acute concerns at this time. She reports her left leg lymphedema is stable and she has not experienced any other episodes similar to this. She states with the weather she does use her albuterol fairly often, but felt she was having a "good day today" In the ED, vitals were notable for BP of 120-130s, HR of 80s and O2 sat of high 90s on room air, afebrile labs with trop 860.5, mild lipase elevation to 95 with no corresponding gi symptoms, sodium of 135 stable at pt range Coronary angiography findings: RCA-medium to large caliber dominant vessel. Bifurcates distally into the PDA and posterolateral branches. No angiographically evident disease. Provides sparse [id number] collateralization. LMT-this is large caliber and trifurcates into the LAD, ramus, and circumflex. It has diffuse mild disease with the most significant stenosis being 20 to 30%. LAD-medium to large in caliber. Diffuse and heavy calcification proximal and mid vessel. Proximal LAD has 60 to 70% stenosis. LAD provides a medium caliber septal branch which has ostial 90% stenosis and a medium caliber first diagonal which branches distally and has a proximal 70 to 80% stenosis. The mid LAD has calcified 80% stenosis and after it bends it is then 100% occluded. This is a flat/flush occlusion and occurs at the level of a small second diagonal and a septal branch. MERRICK 0 flow distally. Ramus-small caliber and long vessel. Ostial disease of 80 to 90%. The rest of the vessel has diffuse mild disease. [id number] and nondominant. Travels in the AV groove where there is a long eccentric 70% stenosis. Distally provides a large branching posterolateral. This vessel has ostial 80% stenosis and then mild luminal irregularities. EKG noted ST E in V2-V5 ED interventions: heparin bolus, Brilinta load Consultants: Interventional Cards Patient to be admitted to ICU for further evaluation and management of .STEMI Admission Exam Per Admitting Provider GENERAL APPEARANCE: AxOx4, generally well-appearing female, no acute distress. HEENT: NC, AT. MMM. EOMI, clear conjunctiva, oropharynx clear. NECK: Supple without lymphadenopathy. No stiffness or restricted ROM. HEART: Normal rate and regular rhythm, normal S1/S1, no m/r/g LUNGS: CTAB, moving air well. No crackles or wheezes are heard. ABDOMEN: Soft, nontender, nondistended with good bowel sounds heard. BACK: No CVAT, no obvious deformity. EXTREMITIES: Without cyanosis, clubbing. LLE with CHI bandaging for lymphedema; TR band in right wrist NEUROLOGICAL: Grossly nonfocal. Alert and oriented, moving all 4 extremities. CN not formally tested but appear grossly intact. Skin: Warm and dry without any rash. Principal Diagnosis (1) STEMI (ST elevation myocardial infarction): (2) Hypertension: (3) Hyperlipidemia: (4) Paroxysmal A-fib: Discharge Exam Constitutional: WD/WN, vitals as above, NAD, sitting up in bed, pleasant, conversing easily Respiratory: normal respiratory effort, lungs clear to auscultation, no wheeze, rales, rhonchi. Normal insp/exp effort, no accessory muscle use Cardiovascular: RRR, no murmur, no edema Vessels: no JVD or carotid bruit Chest: normal inspection of chest Abdomen: normal bowel sounds, soft, nontender, no hepatosplenomegaly Musculoskeletal: no cyanosis or clubbing, extremities motor strength 5/5 Skin: no rashes, warm and dry normal turgor Neurologic: PERRL, EOMI, accommodation nl, no face palsy, no dysarthria CN's II- XI intact bilaterally and moves all extremities Psychiatric: A+Ox3, euthymic affect Discharge Data Allergies Allergy/AdvReac Type Severity Reaction Status Date / Time No Known Allergies Allergy Unknown NO Verified 01/10/25 11:04 Consultations 06/05/25 17:56 ED Decision to Admit Stat 06/05/25 18:46 Consult Verification Specialist Routine 06/05/25 19:44 Consult Cardiology Routine Procedures Performed Operation Date: 06/06/25 10:00 Actual Procedures p Intra-Aortic Balloon Insertion - Alirio Garcia MD, PhD Ordered Studies 06/05/25 17:13 CL Cath Imgs for PACS use only Stat 06/06/25 09:51 CL Cath Imgs for PACS use only Routine 06/06/25 10:02 CL Cath Imgs for PACS use only Stat Hospital Course (1) STEMI (ST elevation myocardial infarction): (2) CAD (coronary artery disease): (3) Hyperlipidemia: (4) Hypertension: Plan Ms. Yolie New is an 85 year old female with past medical history of hypertension, hyperlipidemia,asthma, breast cancer status post chemoradiation in 2010, endometrial cancer in 2009, paroxysmal AFib, chronic lymphedema of the left leg, SIADH admitted for evaluation of STEMI. Patient was transferred from [facility] for cardiac cath. The left anterior descending coronary artery was found to be diffusely calcified at time of emergent cardiac catheterization last evening with a 6070% proximal stenosis. The mid LAD was noted to have a 80% stenosis and after an acute bend there was a 100% stenosis. Attempts at PCI were unsuccessful with inability to pass a guidewire past the calcified abrupt bend. Patient was admitted in ICU after cardiac cath. She was placed on heparin and nitroglycerin drip. Patient continues to report continued chest pain. Echocardiogram showed severe hypokinesis to akinesis involving the anteroseptum, apex, anterior wall, apical inferior wall with severe left ventricular systolic dysfunction LVEF in the range of 20-25%, mild mitral regurgitation. Cardiology was consulted; intra-aortic balloon pump was placed emergently in the Charge Out Clerk and patient was planned to be transferred to [facility] for further managment. Please note the above document was generated using voice recognition software. It may contain grammatical, syntax or spelling errors. Any formal questions or concerns about the content, text or information contained within the body of this dictation should be directly addressed to the provider for clarification Total Time Total Time Spent Total Time Spent (In Minutes): 45 Total Time Includes: Examination of the Patient, Discharge Planning, Medication Reconciliation, Communication With Other Providers and Other Discharge Plan Discharge Items Patient Disposition: Transfer Acute Care Hospital Reason For Visit: STEMI Discharge Diagnosis: (1) STEMI (ST elevation myocardial infarction) Condition on Discharge: Critical Activity: Resume your previous activity Non-emergency contact: Primary Care Provider Call non-emergency contact if: you have any medication questions and your symptoms worsen Follow-up/Referrals: Chasity Iniguez MD [Primary Care Provider] - Diet: Regular Addtl Attending Provider Instructions: Date of Service: June 06, 2025 Current Inpatient Medications Acetaminophen (Acetaminophen 325 Mg Tab) 650 mg PO Q4H PRN PRN Reason: MILD Pain (1,2,3) Stop: 07/05/25 18:23 Last Admin: 06/06/25 03:05 Dose: 650 mg Albuterol (Albuterol 0.083% Nebu Soln 3 Ml Vial) 1.25 mg INH Q4H PRN PRN Reason: sob Stop: 07/05/25 19:51 Artificial Tears (Artificial Tears) 1 drops OP TID PRN PRN Reason: Dryness Stop: 07/05/25 19:49 Aspirin (Aspirin 81 Mg Ectab) 81 mg PO QAM [facility] Stop: 07/06/25 08:59 Carvedilol (Carvedilol 3.125 Mg Tab) 3.125 mg PO BID ELVIS Stop: 07/05/25 20:59 Last Admin: 06/05/25 20:22 Dose: 3.125 mg Fluticasone Furoate (Fluticasone Furoate 100mcg 14 Puffs/Inhaler) 1 puffs INH DAILY [facility] Stop: 07/06/25 08:59 Fluticasone Propionate (Fluticasone Propionate Na Spr 16 Gm Btl) 2 sprays PRO DAILY [facility] Stop: 07/06/25 08:59 Gabapentin (Gabapentin 100 Mg Cap) 100 mg PO HS ELVIS Stop: 07/05/25 20:59 Last Admin: 06/06/25 03:05 Dose: 100 mg Sodium Chloride (Nss) 250 mls @ 999 mls/hr IV .Q16M PRN PRN Reason: IF SYS BP LESS THAN 90 Stop: 07/05/25 18:23 Heparin Sodium/Dextrose (Heparin 25131 Unit/500 Ml D5w) 25,000 units in 500 mls @ 14 mls/hr IV .Q24H [facility]; Protocol Stop: 07/05/25 19:44 Last Titration: 06/06/25 06:54 Dose: 700 units/hr, 14 mls/hr Nitroglycerin/Dextrose (Nitroglycerin/D5w 100 Mcg/Ml) 250 mls @ 24 mls/hr IV .[id number] [facility]; Protocol Stop: 07/05/25 21:29 Last Titration: 06/06/25 08:26 Dose: 40 mcg/min, 24 mls/hr Lisinopril (Lisinopril 10 Mg Tab) 10 mg PO BID [facility] Stop: 07/06/25 08:59 Magnesium Oxide (Magnesium Oxide 400 Mg Tab) 400 mg PO QAM [facility] Stop: 07/06/25 08:59 Mirtazapine (Mirtazapine Tab 15 Mg Tab) 15 mg PO QPM ELVIS Stop: 07/05/25 20:59 Last Admin: 06/05/25 22:34 Dose: Not Given Miscellaneous (Icu Protocol For Hyperglycemia) 1 each N/A ACHS [facility] Stop: 06/07/25 20:59 Last Admin: 06/06/25 07:40 Dose: Not Given Montelukast Sodium (Montelukast Sodium 10 Mg Tablet) 10 mg PO HS [facility] Stop: 07/05/25 20:59 Last Admin: 06/05/25 22:34 Dose: Not Given Nitroglycerin (Nitroglycerin Sl 0.4 Mg/Tab Tab) 0.4 mg SL Q5M PRN PRN Reason: Chest Pain Stop: 07/05/25 19:35 Last Admin: 06/05/25 20:35 Dose: 0.4 mg Olodaterol (Olodaterol Hcl 2.5mcg/Actuation 60 Puffs/Inhaler) 2 puffs INH DAILY [facility] Stop: 07/06/25 08:59 Ondansetron HCl (Ondansetron Inj 2 Mg/Ml 2 Ml Vial) 4 mg IV Q6H PRN PRN Reason: Nausea Stop: 07/05/25 18:23 Last Admin: 06/06/25 03:10 Dose: 4 mg Polyethylene Glycol (Polyethylene (Miralax) 17 Gm Pack) 17 gm PO HS PRN PRN Reason: Constipation Stop: 07/05/25 19:35 Rosuvastatin Calcium (Rosuvastatin Calcium 20 Mg Tab) 40 mg PO QPM [facility] Stop: 07/05/25 20:59 Last Admin: 06/05/25 22:34 Dose: Not Given Urea (Urea (Urea-Na) 15 Gm Pack) 15 gm PO [id number] [facility] Stop: 07/05/25 19:44 Last Admin: 06/05/25 21:14 Dose: Not Given Vitamin D (Cholecalciferol 25 Mcg (1000 Units) Tab) 25 mcg PO QAM [facility] Stop: 07/06/25 08:59 Pending Studies at Discharge: No Stand-Alone Forms: [facility] Skilled Items Patient informed of condition?: Yes DNR: Yes Discharge Level of Care: Other Communicable Disease: No Discharge Prognosis: Stable Lines: Peripheral IV Urinary Catheter: No Medications and DC Order Prescriptions: Continued gabapentin [Neurontin] 100 mg capsule 100 mg PO HS lisinopril 20 mg tablet 10 mg PO BID montelukast 10 mg tablet 10 mg PO HS polyethylene glycol 3350 [Miralax] 17 gram powder in packet 17 g PO HS PRN (Reason: Constipation) Pulmicort Flexhaler 180 mcg/actuation aerosol powdr breath activated 1 inh inhalation BID riboflavin (vitamin B2) 400 mg tablet 400 mg PO QAM Serevent Diskus 50 mcg/dose blister with device 1 inh inhalation BID urea 15 gram/scoop powder 15 g PO [id number] Rx Instructions: MWF albuterol sulfate 1.25 mg/3 mL Solution For Nebulization 1.25 mg INHALATION Q4H PRN (Reason: sob) acetaminophen 500 mg Tablet 1,000 mg PO TID PRN (Reason: Pain) carvedilol 3.125 mg Tablet 3.125 mg PO BID Rx Instructions: must administer with a meal/food albuterol sulfate 90 mcg/actuation Hfa Aerosol Inhaler 1 inh INHALATION QID PRN (Reason: sob) fluticasone propionate [Flonase Allergy Relief] 50 mcg/actuation [place],Suspension 2 spray INTRANASAL DAILY PRN (Reason: sinus congestion) Rx Instructions: administer into each nostril psyllium husk [Fiber (psyllium husk)] 0.52 gram Capsule 1.04 g PO HS cholecalciferol (vitamin D3) [Vitamin D3] 25 mcg (1,000 unit) Tablet 25 mcg PO QAM PreserVision AREDS 4,296 mcg-226 mg-90 mg Capsule 1 cap PO BID Eliquis 2.5 mg Tablet 2.5 mg PO BID magnesium oxide 400 mg magnesium Tablet 400 mg PO QAM Artificial Tears (cmc) 1 % Drops 1 drp OPHTHALMIC (EYE) TID PRN (Reason: Dry Eyes) triamcinolone acetonide 0.1 % cream 1 applic TOPICAL DAILY PRN (Reason: rash ) mirtazapine 15 mg tablet 15 mg QPM rosuvastatin 40 mg tablet 40 mg DAILY Discharge Orders: Discharge Order (Routine); Ordered 06/06/25 Ordered By: Cl David Admission Data Admit Date/Time: 06/05/25 18:16 Attending Provider: Cl David Admit Provider: Naya Courtney Primary Care Provider: Chasity Iniguez Other Providers: Naya Courtney; Lorenzo Arana; Alirio Riley
[2025-06-06] MEDS: OPTIRAY 350 ONE (11:00)
--- NOTE | 2025-06-06 11:27 | Post Anesthesia Assessment ---
Date of Service June 06, 2025 Post Sedation Assessment Vital Signs Temp Pulse Pulse Resp BP BP BP 06/06/25 10:10 74 16 136/65 06/06/25 08:42 66 15 06/06/25 08:40 116/61 06/06/25 08:39 66 13 06/06/25 08:30 69 17 06/06/25 08:30 110/61 06/06/25 08:21 64 15 06/06/25 08:20 118/65 06/06/25 08:18 65 16 06/06/25 08:12 67 15 06/06/25 08:10 125/68 06/06/25 08:09 69 17 06/06/25 08:00 125/65 06/06/25 08:00 72 17 06/06/25 07:51 65 17 06/06/25 07:45 67 14 06/06/25 07:45 127/58 L 06/06/25 07:42 65 13 06/06/25 07:38 122/54 L 06/06/25 07:36 81 16 06/06/25 07:30 68 16 06/06/25 07:30 140/57 L 06/06/25 06:30 77 16 06/06/25 06:30 139/63 06/06/25 06:21 73 15 06/06/25 06:12 71 16 06/06/25 06:00 73 23 06/06/25 06:00 126/54 L 06/06/25 05:51 67 21 06/06/25 05:42 06/06/25 05:30 83 15 06/06/25 05:30 126/68 06/06/25 05:30 126/68 06/06/25 05:21 68 16 06/06/25 05:12 65 16 06/06/25 05:00 115/63 06/06/25 05:00 115/63 06/06/25 05:00 115/63 06/06/25 05:00 65 15 06/06/25 04:51 66 15 06/06/25 04:42 66 16 06/06/25 04:30 65 14 06/06/25 04:30 120/60 06/06/25 04:30 120/60 06/06/25 04:21 70 16 06/06/25 04:12 69 17 06/06/25 04:00 36.8 C 65 18 06/06/25 04:00 117/59 L 06/06/25 03:51 73 21 06/06/25 03:42 66 17 06/06/25 03:30 64 15 06/06/25 03:30 120/72 06/06/25 03:30 120/72 06/06/25 03:21 71 15 06/06/25 03:12 85 12 06/06/25 03:09 120/79 06/06/25 03:09 84 19 06/06/25 03:00 73 15 06/06/25 02:51 65 31 H 06/06/25 02:42 63 23 06/06/25 02:30 64 33 H 06/06/25 02:30 123/63 06/06/25 02:30 123/63 06/06/25 02:21 63 23 06/06/25 02:12 63 16 06/06/25 02:00 104/62 06/06/25 02:00 104/62 06/06/25 02:00 63 22 06/06/25 01:51 64 16 06/06/25 01:42 64 16 06/06/25 01:30 111/64 06/06/25 01:30 63 15 06/06/25 01:21 64 15 06/06/25 01:12 69 15 06/06/25 01:00 63 17 06/06/25 01:00 105/62 06/06/25 01:00 105/62 06/06/25 00:51 64 15 06/06/25 00:42 59 L 21 06/06/25 00:30 100/56 L 06/06/25 00:30 100/56 L 06/06/25 00:30 63 19 06/06/25 00:21 63 24 06/06/25 00:12 62 27 H 06/06/25 00:00 61 18 06/06/25 00:00 111/65 06/06/25 00:00 65 06/05/25 23:51 62 24 06/05/25 23:42 62 21 06/05/25 23:30 110/67 06/05/25 23:30 110/67 06/05/25 23:30 36.8 C 110/67 06/05/25 23:30 64 19 06/05/25 23:21 66 19 06/05/25 23:15 63 13 06/05/25 23:15 102/60 06/05/25 23:15 102/60 06/05/25 23:12 72 19 06/05/25 23:00 122/60 06/05/25 23:00 122/60 06/05/25 23:00 71 18 06/05/25 22:51 78 16 06/05/25 22:45 67 28 H 06/05/25 22:45 137/73 06/05/25 22:45 137/73 06/05/25 22:42 66 21 06/05/25 22:30 72 20 06/05/25 22:30 136/73 06/05/25 22:30 136/73 06/05/25 22:30 136/73 06/05/25 22:30 136/73 06/05/25 22:21 66 16 06/05/25 22:15 70 15 06/05/25 22:15 136/75 06/05/25 22:12 69 16 06/05/25 22:00 68 16 06/05/25 22:00 143/76 H 06/05/25 21:51 67 16 06/05/25 21:45 141/79 H 06/05/25 21:45 141/79 H 06/05/25 21:45 73 15 06/05/25 21:42 76 16 06/05/25 21:30 64 27 H 06/05/25 21:30 142/71 H 06/05/25 21:30 142/71 H 06/05/25 21:21 72 17 06/05/25 21:12 63 14 06/05/25 21:00 120/76 06/05/25 21:00 120/76 06/05/25 21:00 71 15 06/05/25 20:51 66 12 06/05/25 20:46 107/75 06/05/25 20:46 107/75 06/05/25 20:45 67 18 06/05/25 20:42 73 12 06/05/25 20:41 133/91 06/05/25 20:41 133/91 06/05/25 20:39 85 29 H 06/05/25 20:39 147/91 H 06/05/25 20:30 130/92 06/05/25 20:30 130/92 06/05/25 20:30 130/92 06/05/25 20:30 79 17 06/05/25 20:21 83 12 06/05/25 20:00 06/05/25 20:00 36.5 C 88 20 153/96 H 06/05/25 20:00 147/90 H 06/05/25 20:00 147/90 H 06/05/25 20:00 147/90 H 06/05/25 20:00 147/90 H 06/05/25 20:00 36.5 C 147/90 H 06/05/25 20:00 83 26 H 06/05/25 19:51 82 13 06/05/25 19:45 152/87 H 06/05/25 19:45 152/87 H 06/05/25 19:45 152/87 H 06/05/25 19:45 152/87 H 06/05/25 19:45 83 26 H 06/05/25 19:42 82 15 06/05/25 19:30 85 26 H 06/05/25 19:30 142/100 H 06/05/25 19:30 142/100 H 06/05/25 19:21 83 19 06/05/25 19:15 153/96 H 06/05/25 19:15 153/96 H 06/05/25 19:15 153/96 H 06/05/25 19:15 153/96 H 06/05/25 19:15 153/96 H 06/05/25 19:15 85 23 06/05/25 19:12 83 16 06/05/25 19:00 85 21 06/05/25 19:00 141/95 H 06/05/25 19:00 141/95 H 06/05/25 19:00 141/95 H 06/05/25 19:00 141/95 H 06/05/25 18:51 81 20 06/05/25 18:46 137/88 06/05/25 18:45 81 18 06/05/25 18:42 85 27 H 06/05/25 18:39 82 25 H 06/05/25 18:39 83 06/05/25 18:38 127/85 06/05/25 17:13 06/05/25 17:13 06/05/25 16:56 12/08/25 16:56 36.8 C 82 20 124/91 06/05/25 16:56 06/05/25 16:56 36.8 C 82 20 124/91 Pulse Ox O2 Del Method O2 Flow Rate 06/06/25 10:10 94 Room Air 06/06/25 08:42 98 06/06/25 08:40 06/06/25 08:39 97 06/06/25 08:30 99 06/06/25 08:30 06/06/25 08:21 99 06/06/25 08:20 06/06/25 08:18 99 06/06/25 08:12 99 06/06/25 08:10 06/06/25 08:09 99 06/06/25 08:00 06/06/25 08:00 100 06/06/25 07:51 100 06/06/25 07:45 100 06/06/25 07:45 06/06/25 07:42 100 06/06/25 07:38 06/06/25 07:36 100 06/06/25 07:30 100 06/06/25 07:30 06/06/25 06:30 06/06/25 06:30 06/06/25 06:21 06/06/25 06:12 100 06/06/25 06:00 100 06/06/25 06:00 06/06/25 05:51 100 06/06/25 05:42 99 06/06/25 05:30 97 Nasal Cannula 2 06/06/25 05:30 06/06/25 05:30 06/06/25 05:21 98 06/06/25 05:12 98 06/06/25 05:00 06/06/25 05:00 06/06/25 05:00 06/06/25 05:00 98 06/06/25 04:51 98 06/06/25 04:42 98 06/06/25 04:30 99 06/06/25 04:30 06/06/25 04:30 06/06/25 04:21 99 06/06/25 04:12 99 06/06/25 04:00 98 Nasal Cannula 2 06/06/25 04:00 06/06/25 03:51 99 06/06/25 03:42 100 06/06/25 03:30 100 06/06/25 03:30 06/06/25 03:30 06/06/25 03:21 100 06/06/25 03:12 98 06/06/25 03:09 06/06/25 03:09 100 06/06/25 03:00 100 06/06/25 02:51 99 06/06/25 02:42 98 06/06/25 02:30 98 06/06/25 02:30 06/06/25 02:30 06/06/25 02:21 98 06/06/25 02:12 99 06/06/25 02:00 06/06/25 02:00 06/06/25 02:00 99 06/06/25 01:51 99 06/06/25 01:42 99 06/06/25 01:30 06/06/25 01:30 99 06/06/25 01:21 99 06/06/25 01:12 100 06/06/25 01:00 100 06/06/25 01:00 06/06/25 01:00 06/06/25 00:51 98 06/06/25 00:42 97 06/06/25 00:30 06/06/25 00:30 06/06/25 00:30 98 06/06/25 00:21 98 06/06/25 00:12 97 06/06/25 00:00 97 06/06/25 00:00 06/06/25 00:00 06/05/25 23:51 97 06/05/25 23:42 97 06/05/25 23:30 06/05/25 23:30 06/05/25 23:30 06/05/25 23:30 97 06/05/25 23:21 97 06/05/25 23:15 97 06/05/25 23:15 06/05/25 23:15 06/05/25 23:12 98 06/05/25 23:00 06/05/25 23:00 06/05/25 23:00 97 06/05/25 22:51 99 06/05/25 22:45 97 06/05/25 22:45 06/05/25 22:45 06/05/25 22:42 97 06/05/25 22:30 97 06/05/25 22:30 06/05/25 22:30 06/05/25 22:30 06/05/25 22:30 06/05/25 22:21 97 06/05/25 22:15 98 06/05/25 22:15 06/05/25 22:12 98 06/05/25 22:00 99 06/05/25 22:00 06/05/25 21:51 99 06/05/25 21:45 06/05/25 21:45 06/05/25 21:45 99 06/05/25 21:42 99 06/05/25 21:30 100 06/05/25 21:30 06/05/25 21:30 06/05/25 21:21 100 06/05/25 21:12 100 06/05/25 21:00 06/05/25 21:00 06/05/25 21:00 100 06/05/25 20:51 98 06/05/25 20:46 06/05/25 20:46 06/05/25 20:45 97 06/05/25 20:42 97 Nasal Cannula 2 06/05/25 20:41 06/05/25 20:41 06/05/25 20:39 100 06/05/25 20:39 06/05/25 20:30 06/05/25 20:30 06/05/25 20:30 06/05/25 20:30 100 06/05/25 20:21 100 06/05/25 20:00 Nasal Cannula 2 06/05/25 20:00 96 Room Air 06/05/25 20:00 06/05/25 20:00 06/05/25 20:00 06/05/25 20:00 06/05/25 20:00 06/05/25 20:00 100 06/05/25 19:51 100 06/05/25 19:45 06/05/25 19:45 06/05/25 19:45 06/05/25 19:45 06/05/25 19:45 98 06/05/25 19:42 99 06/05/25 19:30 100 06/05/25 19:30 06/05/25 19:30 06/05/25 19:21 99 06/05/25 19:15 06/05/25 19:15 06/05/25 19:15 06/05/25 19:15 06/05/25 19:15 06/05/25 19:15 99 06/05/25 19:12 98 06/05/25 19:00 100 06/05/25 19:00 06/05/25 19:00 06/05/25 19:00 06/05/25 19:00 06/05/25 18:51 99 06/05/25 18:46 06/05/25 18:45 100 06/05/25 18:42 100 06/05/25 18:39 95 06/05/25 18:39 06/05/25 18:38 06/05/25 17:13 92 Room Air 06/05/25 17:13 Room Air 06/05/25 16:56 92 Room Air 06/05/25 16:56 92 Room Air 06/05/25 16:56 Room Air 06/05/25 16:56 92 Room Air Recovery Score Activity: Moves 4 extremities Respiration: Deep Breath/Cough Circulation: +/-20% PreAnes Value Consciousness: Fully Awake Oxygen Saturation: > 92% On Room Air Discharge Sedation Level of Care: Fast Track Phase II Post Sedation Plan On clinical assessment, the patient appears to have tolerated the sedation without complications. Patient is recovering as anticipated. Patient will continue to be monitored by nursing and may be discharged when sedation discharge criteria are met per below protocol. Upon Completions of procedure up to 15 minutes continue every 5 minute vital signs and the P.A.R. score; then discharge to a Phase I or Fast Track to Phase II per the following guidelines: * Discharge Patient to appropriate Phase II area if PAR is 8 or greater or return to pre- procedure baseline. The post - procedure orders will be as directed. * If PAR score is less than 8 or not return to pre-procedure baseline then patient will follow Phase I monitoring till PAR is reached for Phase II. The Phase I may be done in procedure room or may call to secure a Phase I area. * If naloxone or flumazenil are used for reversal, hold in Phase I for continued monitoring from when last reversal dose was given for a minimum of 60 minutes or longer pending the nurse and/or physician discretion of patient condition before discharge to Phase II. Please call the Sedation Physician to re-evaluate and complete post-note for discharge to Phase II area. Do NOT discharge from procedure sedation or Phase 1 until post- sedation evaluation note is complete by procedure /sedation MD Sedation Discharge Instructions to be given to the patient at discharge to home.
[2025-06-06] MEDS: HEPARIN (PORCINE) 1000 UNIT/ML 10 ML (CATH LAB USE ONLY) ONE (11:28)
[2025-06-06] MEDS: MIDAZOLAM HCL 1 MG/ML 2ML VIAL ONE (11:28)
[2025-06-06] MEDS ORDERED: NOREPINEPHRINE/D5W 4 MG/250 ML IV ONE (12:46)
[2025-06-06] MEDS: CHOLECALCIFEROL 25 MCG (1000 UNITS) TAB PO SCH (12:56)
[2025-06-06] MEDS: FLUTICASONE FUROATE 100MCG 14 PUFFS/INHALER INH SCH (12:56)
[2025-06-06] MEDS: ASPIRIN 81 MG ECTAB PO SCH (12:56)
[2025-06-06] MEDS: FLUTICASONE PROPIONATE NA SPR 16 GM BTL NAE SCH (12:56)
[2025-06-06] MEDS: MAGNESIUM OXIDE 400 MG TAB PO SCH (12:57)
[2025-06-06] MEDS: OLODATEROL HCL 2.5MCG/ACTUATION 60 PUFFS/INHALER INH SCH (12:57)
[2025-06-06 13:14] VITALS: PULSE 69
[2025-06-06 13:15] VITALS: BP 90/52
--- NOTE | 2025-06-08 10:37 | Electrocardiogram Report ---
Test Reason : Blood Pressure : */* mmHG Vent. Rate : 79 BPM Atrial Rate : 79 BPM P-R Int : 260 ms QRS Dur : 74 ms QT Int : 370 ms P-R-T Axes : 83 94 87 degrees QTcB Int : 424 ms Sinus rhythm with 1st degree A-V block Rightward axis Low voltage QRS Anteroseptal infarct (cited on or before 05-Jun-2025) ACUTE [place] / STEMI Abnormal ECG When compared with ECG of 05-Jun-2025 17:14, (unconfirmed) ST more elevated in Anterior leads Confirmed by Santosh Barnett ([id number]) on 06/08/2025 10:37:29 AM Referred By: REFERRED SELF Confirmed By: Santosh Barnett
--- NOTE | 2025-06-08 10:38 | Electrocardiogram Report ---
Test Reason : Blood Pressure : */* mmHG Vent. Rate : 74 BPM Atrial Rate : 74 BPM P-R Int : 236 ms QRS Dur : 78 ms QT Int : 402 ms P-R-T Axes : 70 73 84 degrees QTcB Int : 446 ms Sinus rhythm with 1st degree A-V block Anteroseptal infarct (cited on or before 05-Jun-2025) ACUTE OR / STEMI Abnormal ECG When compared with ECG of 05-Jun-2025 18:35, (unconfirmed) Serial changes of evolving Anteroseptal infarct Present Confirmed by Santosh Barnett ([id number]) on 06/08/2025 10:37:44 AM Referred By: REFERRED SELF Confirmed By: Santosh Barnett
--- NOTE | 2025-06-08 10:40 | Electrocardiogram Report ---
Test Reason : Blood Pressure : */* mmHG Vent. Rate : 63 BPM Atrial Rate : 63 BPM P-R Int : 222 ms QRS Dur : 74 ms QT Int : 452 ms P-R-T Axes : 78 86 94 degrees QTcB Int : 462 ms Sinus rhythm with 1st degree A-V block Anteroseptal infarct (cited on or before 05-Jun-2025) Abnormal ECG When compared with ECG of 06-Jun-2025 05:40, (unconfirmed) Serial changes of Anteroseptal infarct Present Confirmed by Santosh Barnett ([id number]) on 06/08/2025 10:40:06 AM Referred By: REFERRED SELF Confirmed By: Santosh Barnett
--- NOTE | 2025-06-08 10:40 | Electrocardiogram Report ---
Test Reason : Blood Pressure : */* mmHG Vent. Rate : 62 BPM Atrial Rate : 62 BPM P-R Int : 220 ms QRS Dur : 70 ms QT Int : 466 ms P-R-T Axes : 79 76 98 degrees QTcB Int : 472 ms Sinus rhythm with 1st degree A-V block Low voltage QRS Anteroseptal infarct (cited on or before 05-Jun-2025) T wave abnormality, consider lateral ischemia Abnormal ECG When compared with ECG of 05-Jun-2025 20:33, (unconfirmed) Serial changes of evolving Anterior infarct Confirmed by Santosh Barnett ([id number]) on 06/08/2025 10:39:54 AM Referred By: REFERRED SELF Confirmed By: Santosh Barnett
--- NOTE | 2025-06-10 07:06 | Electrocardiogram Report ---
Test Reason : Blood Pressure : */* mmHG Vent. Rate : 80 BPM Atrial Rate : 80 BPM P-R Int : 240 ms QRS Dur : 54 ms QT Int : 364 ms P-R-T Axes : 82 92 86 degrees QTcB Int : 419 ms Sinus rhythm with 1st degree A-V block Rightward axis Anteroseptal infarct , new Inferior injury pattern ACUTE TX / STEMI Abnormal ECG When compared with ECG of 11-Jul-2019 16:04, OR interval has increased Acute Anteroseptal infarct is now Present Confirmed by Santosh Barnett ([id number]) on 06/10/2025 7:06:37 AM Referred By: REFERRED SELF Confirmed By: Santosh Barnett
--- NOTE | 2025-06-11 13:00 | Cardiac Catheterization ---
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 Specialist Cardiac Status Clinical evaluation leading to the procedure CAD Presenation: No Sxs, No angina Diagnostic Physicians Name: Alirio Garcia MD, PhD Closure Device Recommendations: Management Recommendatons (Continue IABP for transfer to [facility]) Cardiac Cath Procedure Full Procedure Date June 11, 2025 Pre-Procedure Diagnosis Pre-Procedure Diagnosis: Cardiomyopathy AUC Score AUC Score: NA Post-Procedure Diagnosis Post-Procedure Diagnosis: Decreased LV Systolic Function and Cardiothoracic Finding (Successful placement of IABP) Procedure(s) Performed Procedure(s) Performed: IABP and Ultrasound Guided Vascular Access Project Manager Finance Alirio Garcia MD, PhD Estimated Blood Loss Estimated Blood Loss: Less than 5 cc Medication(s) Medication(s): Fentanyl, Heparin, Lidocaine 1% and Versed Summary of Findings Brief description: I was asked to place an intra-aortic balloon pump in anticipation and transfer to [facility] and is hemodynamically unstable patient. Known severe CAD. Patient was brought to the cardiac catheterization suite where she was shaved and prepped in a sterile fashion. Sedated using IV Versed and fentanyl. Soft tissues of the right groin were anesthetized using 10 mL of 1% Xylocaine. Using the ultrasound for guidance (image saved), the right femoral artery was accessed with a micropuncture kit. We then inserted an 8 Armenian sheath for the IABP after sequential dilation of the access over the wire. After the sheath was inserted a 40 cc IABP sensor plus balloon catheter was inserted. The catheter was flushed and hooked up to the IABP console as recommended. Balloon pump counterpulsation was then initiated at one-to-one ratio. We had good augmented pressure even when reduced to 1:2 ratio. Heparin was then initiated. The sheath and pump were dressed and sutured in place. Patient was hemodynamically stable and asymptomatic. She was returned to the ICU to await transfer to [facility]. This ended the case. Findings: 1. Successful insertion of 8 Armenian sheath and 40 cc intra-aortic balloon pump catheter. Catheter tip 1 cm below the rohit. Good augmentation of blood pressure. No evidence of complication. Hemodynamics Rest Ao:: N/A Final Ao: N/A LV: N/A Recommendations Recommendations: Management Recommendatons (Continue IABP for transfer to [facility]) Radiation Exposure (mGy) 28 mGy, fluoroscopy time 1.8 minutes Contrast (mls) None Anesthesia 1 mg Versed, 25 mcg fentanyl IV. Start time 1101, end time 1122 Procedural Complication(s) None Disposition ICU I attest to the content of the Intraoperative Record and any orders documented therein. Any exceptions are noted below. [facility] Card Cath Procedure Codes Therapeutic Services & Ancillary Procedure 1: Cardiovascular Tx and Anc Procedures: 86119 IABP Insertion Procedure 2: Cardiovascular Tx and Anc Procedures: 48345 Ultrasonic Guidance Vascular Access Moderate Sedation Procedure 1: Sedation/Anesthesia: 36962 Mod Sedation by the same physician;Init15 Min Child Age 5 & Up (Initial 15 minutes, start 1101) Procedure 2: Sedation/Anesthesia: 28626 Mod Sedation by the same physician; Ea [id number] Minutes (Additional 6 minutes, end 1122) PG Care Time/CCT Total # of Minutes Spent Total Time Spent with Patient: Total time spent is greater than 50% in coordination of care (as documented) at patient's floor/unit and/or counseling patient:
--- NOTE | 2025-06-12 06:20 | Coding Query ---
CODING QUERY To promote full compliance with coding requirements relating to patient care, provider participation is requested in all cases of postal clerk uncertainty. Please assist us with the question(s) below: Coding Question(s): Please verify the date of service on the Cardiac Catheterization report for the IABP placement procedure. The report documents the procedure date to be June 11, 2025, however, the patient was discharged on June 06, 2025. ( ) IABP placement was done on June 06, 2025 ( ) IABP placement was done on June 11, 2025 ( ) IABP placement was done on Other Date of: Physician's Response(s): Thank you Liz Mishra Principal Diagnosis: "that condition established after study, to be chiefly responsible for occasioning the admission of the patient to the hospital for care." Co-Existing Principal Diagnosis: "when two or more diagnoses equally meet the criteria for principal diagnosis as determined by the circumstances of admission, diagnostic work up, and/or therapy provided, and the Alphabetic Index, Tabular List, or another coding guideline does not provide sequencing direction, any one of the diagnoses may be sequenced first." "When the physician has documented what appears to be a current diagnosis in the body of the record, but has not included the diagnosis in the final diagnostic statement, the physician should be asked whether the diagnosis should be added." (Source Coding [facility] 2 QTR90. p3-4) RICH
== END 2025-06-06 15:08 | disposition short-term general hospital (02) | DRG 215 ==
LOC: ED 17:08 → 1E 17:32 → SUATTDRO 18:16